=== PATIENT | male | born 1935 | race Caucasian/White ===

== ENCOUNTER 2017-08-04 17:28 | Emergency (ER) | payer SELFPAY | END 2017-08-04 18:54 | disposition left against medical advice (07) | LOC: E/R 17:28 | DX: Z53.21 Procedure and treatment not carried out due to patient leaving prior to being seen by health care provider (principal) ==

== ENCOUNTER 2018-08-05 09:41 | Observation (INO) | payer MEDICARE, OTHER ==
[2018-08-05 11:28] LABS: ADD MAN DIFF? NO
[2018-08-05 11:33] LABS: WHITE BLOOD COUNT 6.4 10^3/ul (4.8-10.8)
[2018-08-05 11:33] LABS: BASOPHILS % 0.5 % (0.0-2.0); EOSINOPHILS # 0.2 10^3/ul (0.0-0.5); EOSINOPHILS % 2.4 % (0.0-7.0); HEMATOCRIT 42.3 % (42.0-52.0); HEMOGLOBIN 14.3 g/dl (14.0-18.0); LYMPHOCYTES # 1.1 10^3/ul (0.8-2.9); LYMPHOCYTES % 17.9 % (15.0-51.0); MEAN CORPUSCULAR HEMOGLOBIN 31.6 pg (29.0-33.0); MEAN CORPUSCULAR HGB CONC 33.8 g/dl (32.0-37.0); MEAN CORPUSCULAR VOLUME 93.4 fl (82.0-101.0); MEAN PLATELET VOLUME 10.5 fl (7.4-10.4); MONOCYTE # 0.5 10^3/ul (0.3-0.9); MONOCYTES % 7.9 % (0.0-11.0); NEUTROPHIL # 4.5 10^3/ul (1.6-7.5); NEUTROPHILS % 70.7 % (39.0-77.0); PLATELET COUNT 134 10^3/UL (140-415); POSITIVE DIFF @See below; RED BLOOD COUNT 4.53 10^6/ul (4.70-6.10); RED CELL DISTRIBUTION WIDTH 13.7 % (11.5-14.5)
[2018-08-05 11:51] LABS: INR 1.13; PROTIME 14.6 Sec (11.9-14.9); PT RATIO 1.1
[2018-08-05 11:54] LABS: ANION GAP 8 (5-13); BLOOD UREA NITROGEN 29 mg/dl (7-20); CALCIUM 9.7 mg/dl (8.4-10.2); CARBON DIOXIDE 29 mmol/L (21-31); CHLORIDE 104 mmol/L (97-110); CREATININE 1.12 mg/dl (0.61-1.24); GLUCOSE 140 mg/dl (70-220); POTASSIUM 4.6 mmol/L (3.5-5.1); SODIUM 141 mmol/L (135-144)
[2018-08-05 12:03] LABS: B-TYPE NATRIURETIC PEPTIDE 349 PG/ML (0-450)
[2018-08-05 12:08] LABS: TROPONIN-I < 0.012 ng/ml (0.000-0.120)
[2018-08-05] MEDS ORDERED: ALBUTEROL/IPRATROPIUM (NEB) 3 ML AMP HHN (15:00)
[2018-08-05] MEDS ORDERED: morphine 2 MG INJ IV (15:00)
[2018-08-05] MEDS ORDERED: NACL 0.9% 3 ML SYG IV (15:00)
[2018-08-05] MEDS ORDERED: ONDANSETRON 4 MG INJ IV (15:00)
[2018-08-05] MEDS ORDERED: ACETAMINOPHEN 325 MG TAB PO ×2 (15:00)
[2018-08-05] MEDS ORDERED: BISACODYL (EC) 5 MG TAB PO (15:00)
[2018-08-05] MEDS ORDERED: NITROGLYCERIN (SL) 0.4 MG TAB SL (15:00)
[2018-08-05] MEDS ORDERED: HYDROCODONE/APAP (5/325) TAB PO (15:00)
[2018-08-05] MEDS: ASPIRIN 81 MG TAB PO (15:15)
[2018-08-05] MEDS: FUROSEMIDE 40 MG INJ IV (15:15)
[2018-08-05] MEDS ORDERED: GLUCOSE GEL 15 GRAM TUBE BUCCAL (15:30)
[2018-08-05] MEDS ORDERED: GLUCOSE GEL 15 GRAM TUBE PO ×2 (15:30)
[2018-08-05] MEDS ORDERED: DEXTROSE 50% 50 ML SYRINGE IV ×2 (15:30)
[2018-08-05] MEDS ORDERED: GLUCAGON 1 MG INJ IM (15:30)
[2018-08-05] MEDS: INSULIN ASPART [NOVOLOG] 3 ML PEN SC ×3 (17:17→21:00)
[2018-08-05 18:20] LABS: CREATINE KINASE 55 IU/L (23-200)
[2018-08-05 18:31] LABS: CK INDEX 2.4; CK-MB 1.34 ng/ml (0.0-2.4); TROPONIN-I < 0.012 ng/ml (0.000-0.120)
[2018-08-05] MEDS: FUROSEMIDE 20 MG INJ IV (18:42)
[2018-08-05] MEDS ORDERED: APIXABAN 5 MG TABLET PO (21:00)
[2018-08-05] MEDS: ATORVASTATIN 80 MG TAB PO (21:10)
[2018-08-05] MEDS: ALBUTEROL/IPRATROPIUM (NEB) 3 ML AMP HHN (21:56)
[2018-08-05] MEDS: APIXABAN 5 MG TABLET PO (22:40)
[2018-08-05] MEDS: SPIRONOLACTONE 25 MG TAB PO (22:50)
[2018-08-06] MEDS: ACCU-CHEK XX (01:01)
[2018-08-06 05:31] LABS: ADD MAN DIFF? NO
[2018-08-06 05:34] LABS: BASOPHILS % 0.5 % (0.0-2.0); EOSINOPHILS # 0.2 10^3/ul (0.0-0.5); EOSINOPHILS % 2.8 % (0.0-7.0); HEMATOCRIT 41.9 % (42.0-52.0); HEMOGLOBIN 14.4 g/dl (14.0-18.0); LYMPHOCYTES # 1.1 10^3/ul (0.8-2.9); LYMPHOCYTES % 18.4 % (15.0-51.0); MEAN CORPUSCULAR HEMOGLOBIN 31.3 pg (29.0-33.0); MEAN CORPUSCULAR HGB CONC 34.4 g/dl (32.0-37.0); MEAN CORPUSCULAR VOLUME 91.1 fl (82.0-101.0); MEAN PLATELET VOLUME 11.4 fl (7.4-10.4); MONOCYTE # 0.6 10^3/ul (0.3-0.9); MONOCYTES % 9.1 % (0.0-11.0); NEUTROPHIL # 4.1 10^3/ul (1.6-7.5); NEUTROPHILS % 68.7 % (39.0-77.0); PLATELET COUNT 135 10^3/UL (140-415); POSITIVE DIFF @See below; RED CELL DISTRIBUTION WIDTH 13.5 % (11.5-14.5)
[2018-08-06 05:57] LABS: ALANINE AMINOTRANSFERASE 20 IU/L (13-69); ALBUMIN 4.1 g/dl (3.3-4.9); ALBUMIN/GLOBULIN RATIO 1.13; ALKALINE PHOSPHATASE 54 IU/L (42-121); ANION GAP 10 (5-13); ASPARTATE AMINO TRANSFERASE 32 IU/L (15-46); BILIRUBIN,INDIRECT 0.7 mg/dl (0-1.1); BILIRUBIN,TOTAL 0.7 mg/dl (0.2-1.3); BLOOD UREA NITROGEN 30 mg/dl (7-20); CALCIUM 9.6 mg/dl (8.4-10.2); CARBON DIOXIDE 29 mmol/L (21-31); CHLORIDE 99 mmol/L (97-110); CHOL/HDL RATIO 3.5 RATIO; CHOLESTEROL 156 mg/dl (100-200); CREATININE 1.21 mg/dl (0.61-1.24); GLUCOSE 131 mg/dl (70-220); HDL CHOLESTEROL 44 mg/dl (31-75); LDL CHOLESTEROL,CALCULATED 90 mg/dl; MAGNESIUM 1.8 mg/dl (1.7-2.5); POTASSIUM 4.2 mmol/L (3.5-5.1); SODIUM 138 mmol/L (135-144); TOTAL PROTEIN 7.7 g/dl (6.1-8.1); TRIGLYCERIDES 109 mg/dl (0-149)
[2018-08-06] MEDS: LEVOTHYROXINE 50 MCG TAB PO (07:28)
[2018-08-06] MEDS: INSULIN ASPART [NOVOLOG] 3 ML PEN SC (07:35)
[2018-08-06 08:10] LABS: HEMOGLOBIN A1C 6.7 % (0-5.9)
[2018-08-06] MEDS: ALBUTEROL/IPRATROPIUM (NEB) 3 ML AMP HHN (08:13)
[2018-08-06] MEDS ORDERED: ASPIRIN 81 MG TAB PO (09:00)
[2018-08-06 09:32] LABS: TROPONIN-I < 0.012 ng/ml (0.000-0.120)
[2018-08-06] MEDS: SPIRONOLACTONE 25 MG TAB PO (10:35)
[2018-08-06] MEDS: APIXABAN 5 MG TABLET PO (10:35)
[2018-08-06] MEDS: LOSARTAN 25 MG TAB PO (10:36)
[2018-08-06] MEDS: FUROSEMIDE 40 MG INJ IV (10:37)
[2018-08-06] MEDS ORDERED: DIGOXIN 0.125 MG TAB PO (13:00)
== END 2018-08-06 11:30 | disposition home or self-care (01) ==
LOC: E/R 09:41 → MS3 14:43
DX: R07.9 Chest pain, unspecified (principal); I11.0 Hypertensive heart disease with heart failure; I50.23 Acute on chronic systolic (congestive) heart failure; E03.9 Hypothyroidism, unspecified; E78.5 Hyperlipidemia, unspecified; E11.9 Type 2 diabetes mellitus without complications; I48.91 Unspecified atrial fibrillation; Z79.82 Long term (current) use of aspirin; Z87.891 Personal history of nicotine dependence; Z79.01 Long term (current) use of anticoagulants
CPT/HCPCS: 36415; 71045; 80048; 80053; 80061; 82550; 82553; 82962; 83036; 83735; 83880; 84443; 84484; 85025; 85610; 93005; 93306; 94640; 94664; 97162; 99285-25; G0378